=== PATIENT | male | born 1935 | race Caucasian/White ===

== ENCOUNTER 2024-08-29 16:11 | Emergency (ER) | payer OTHER, SELFPAY ==
[2024-08-29 16:21] VITALS: BP 152/86
[2024-08-29 16:47] LABS: % Basophils 0.6 % (0-2); % Eosinophils 7.2 % (0-6); % Immature Granulocytes 0.3 % (0-0.5); % Lymphocytes 16.1 % (20.5-51.1); % Monocytes 7.4 % (1.7-9.3); % Neutrophils 68.4 % (42.2-75.2); Absolute Eosinophils 0.5 10^3/uL (0-0.7); Absolute Lymphocytes 1.1 10^3/uL (1.2-3.4); Absolute Monocytes 0.5 10^3/uL (0.1-0.6); Absolute Neutrophils 4.7 10^3/uL (1.4-6.5); Hematocrit 36.7 % (39.0-52.0); Hemoglobin 12.7 g/dL (13.0-18.0); Mean Corp Hgb Conc. 34.6 g/dL (33.0-37.0); Mean Corpuscular Hgb 31.1 pg (27.0-31.0); Mean Corpuscular Volume 89.7 fL (80.0-94.0); Mean Platelet Volume 9.5 fL (7.4-10.4); Nucleated Red Blood Cells % 0 % (-); Platelet Count 189 10^3/uL (130-400); Red Blood Cell Count 4.09 10^6/uL (4.70-6.10); Red Cell Dist. Width 12.8 % (11.5-14.5); White Blood Cell Count 6.9 10^3/uL (4.8-10.8)
[2024-08-29 17:14] LABS: ALT (SGPT) 13 U/L (0-50); AST (SGOT) 17 U/L (17-59); Albumin 4.7 g/dl (3.5-5.0); Alkaline Phosphatase 70 U/L (38-126); Blood Urea Nitrogen 61 mg/dl (9-20); Calcium 9.4 mg/dl (8.4-10.2); Carbon Dioxide 17 mmol/L (22-30); Chloride 107 mmol/L (98-107); Glucose 100 mg/dl (70-99); Potassium 5.3 mmol/L (3.5-5.1); Sodium 138 mmol/L (135-145); Total Bilirubin 0.5 mg/dl (0.2-1.3); Total Protein 7.8 g/dl (6.3-8.2); eGFR 11.67
[2024-08-29 19:13] VITALS: BP 186/83
[2024-08-29 19:37] LABS: Urine Albumin Trace (Neg - Trace); Urine Bilirubin Negative (Negative); Urine Character Clear (Clear); Urine Color Yellow; Urine Glucose 2+ (Negative); Urine Ketone Negative (Negative); Urine Leukocyte Negative (Negative); Urine Nitrite Negative (Negative); Urine Occult Blood Negative (Negative); Urine Specific Gravity 1.015 (<1.030); Urine Urobilinogen Negative (Neg - 1+)
--- NOTE | 2024-08-29 20:23 | ED.GENMED ---
History of Present Illness
General
Chief Complaint: Male Genito-Urinary Symptoms
Source: patient
Exam Limitations: none
Time Seen by Provider: 08/29/24 19:15
History of Present Illness
History of Present Illness:
Patient with a history of chronic renal insufficiency. Patient states his baseline creatinine is 4.1. Had an outpatient ultrasound by his primary physician who stated he had urinary retention and needed to go to an ER for Richards. He has no other
specific complaints. Denies chest pain shortness of breath weight changes or other complaints.
Past History
Past History
ED Past Medical History: Cancer (Skin), HTN and Other (Renal insufficiency)
Review of Systems
Review of Systems
All Other Systems: Not applicable
Constitutional: Denies fever or chills
Respiratory: Reports no symptoms
Cardiac: Reports no symptoms
Phy Exam
Physical Exam
Physical Exam:
GENERAL: Alert and oriented in no apparent distress
EYE: Orbits normal.
NECK: Supple
CARDIAC: Regular rate and rhythm without any obvious murmurs.
LUNGS: Clear breath sounds,normal
ABDOMEN: Soft, without focal tenderness or distention
NEUROLOGICAL: Alert and oriented , grossly non-focal
SKIN: Warm and dry, no rash or lesion, no discoloration, skin intact.
MUSCULOSKELETAL: Mild bilateral lower extremity edema
PSYCH: Normal and appropriate interaction.
Course
Orders/Labs/Results
Orders:
Orders
08/29/24 16:32
CMP [Comprehensive Metabolic Panel] Urgent
Complete Blood Count/With Diff Urgent
08/29/24 17:56
Richards Placement- Treatment ONCE
Reason for insertion: Acute Retention
08/29/24 19:26
Bladder Scan- Treatment ONCE
US Kidneys [US Renal Only W/O Bladder] Urgent
Comment:
Reason For Exam: NATALIE
08/29/24 19:29
Urinalysis Reflex To Culture Urgent
Date Specimen was Collected: 08/29/24
Time Specimen was Collected: 19:26
Abnormal Lab Results
08/29/24 08/29/24
16:32 19:29
RBC 4.09 L 10^6/uL
(4.70-6.10)
Hgb 12.7 L g/dL
(13.0-18.0)
Hct 36.7 L %
(39.0-52.0)
MCH 31.1 H pg
(27.0-31.0)
Absolute Lymphs (auto) 1.1 L 10^3/uL
(1.2-3.4)
Lymphocytes % 16.1 L %
(20.5-51.1)
Eosinophils % 7.2 H %
(0-6)
Potassium 5.3 H mmol/L
(3.5-5.1)
Carbon Dioxide 17 L mmol/L
(22-30)
BUN 61 H mg/dl
(9-20)
Creatinine 4.6 H* mg/dL
(0.7-1.3)
Glucose 100 H mg/dl
(70-99)
Urine Glucose 2+ A
(Negative)
08/29/24 16:32
08/29/24 16:32
Vital Signs
Initial and Last Documented VS:
Initial Vital Signs
Temp Pulse Resp BP Pulse Ox
98.1 F 64 20 152/86 98
08/29/24 16:21 08/29/24 16:21 08/29/24 16:21 08/29/24 16:21 08/29/24 16:21
Last Documented Vital Signs
Temp Pulse Resp BP Pulse Ox
98.1 F 71 19 157/79 98
08/29/24 16:21 08/29/24 21:05 08/29/24 21:05 08/29/24 21:05 08/29/24 20:30
*Radiology
Radiology exam reviewed: radiology read reviewed (Chronic kidney disease slightly dilated right ureter. Renal cysts)
*Pulse Oximetry
Patient hypoxic: no
*Critical Care Note
Total Time (30-74mins, 75-104mins- exclusive of procedures): Not Applicable
Update Note
Update Note:
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 Clearly this has been a chronic issue. Likely contributing to his chronic renal issues. Slight bump in creatinine from baseline of 4.1-4.6. Do not feel this is enough of a change of warrants
admission. However patient does need close follow-up. He lives in [place] and will follow-up in [place] with his primary and with a urologist
ED Attending Note
-
Portions of this chart may have been created with voice recognition software.� Occasional wrong word or��sound alike� substitutions may have occurred due to the inherent limitations of voice recognition software.
Discharge Plan
Departure
Patient Disposition: Home (Routine Discharge)
Date of Disposition: 08/29/24
Time of Disposition: 20:30
Patient with high blood pressure during this ER visit?: Yes
Discharge Problem:
Urinary retention, Progressive renal disease
Instructions: How to Care for Your Richards Catheter, Male, Urinary Retention (DC), BLOOD PRESSURE
Activity Restrictions/Additional Instructions:
You need to follow-up early next week both with your primary physician and arrange to see a urologist near your area
Recommend repeat renal function checked early this week
Interventions
Interventions:
*Risk Screen - Suicide Last Done: 08/29/24 18:58
*General Assessment Last Done: 08/29/24 16:21
*Neglect/Abuse Screening Last Done: 08/29/24 21:14
ED- Fall Risk Assessment Last Done: 08/29/24 18:58
*ED COVID-19 Vaccine History Last Done: 08/29/24 18:58
*Nursing Disposition Last Done: 08/29/24 21:14
ED-Male Genitourinary Assessment Last Done: 08/29/24 18:58
Discharge Date and Time
Discharge Date/Time: 08/29/24 21:24
Print Language: THAI
[2024-08-29 21:05] VITALS: BP 157/79
== END 2024-08-29 21:24 | disposition home or self-care (01) ==
LOC: EMR 16:11
PROVIDERS: Physician Assistant; EMERGENCY PHYSICIAN Emergency Medicine
DX: R33.9 Retention of urine, unspecified (principal); I12.9 Hypertensive chronic kidney disease with stage 1 through stage 4 chronic kidney disease, or unspecified chronic kidney disease; N18.9 Chronic kidney disease, unspecified; Z85.828 Personal history of other malignant neoplasm of skin
CPT/HCPCS: 51702; 99284; 76775; 80053; 81003; 85025